=== PATIENT | male | born 2000 | race Two or more races ===

== ENCOUNTER → 2020-12-04 | Outpatient (CLI) | payer SELFPAY | LOC: M LABSMTC 11:09 | PROVIDERS: ATTEND Pediatrics | DX: Z20.822 Contact with and (suspected) exposure to COVID-19 (principal) ==

== ENCOUNTER → 2025-06-29 | Outpatient (REF) | LOC: M PLAIMG 12:00 | PROVIDERS: ATTEND Internal Medicine | DX: M25.041 Hemarthrosis, right hand (principal) ==